=== PATIENT | male | born 2000 | race Caucasian/White ===

== ENCOUNTER 2019-03-11 06:58 | Observation (INO) | payer OTHER ==
--- NOTE | 2019-03-11 07:07 | EDPHY ---
H & P Stated Complaint: sore throat, dysphagia since ~ midnight Time Seen by Provider: 03/11/19 07:06 HPI/ROS: CHIEF COMPLAINT: Throat and esophagus pain HISTORY OF PRESENT ILLNESS: This is a healthy 18-year-old male who had 4 hr of forceful vomiting early this morning (from 11:00 p.m. To 3:00 a.m.). He has not vomited since 3:00 a.m.. He however, he reports throat and esophagus pain. It is a burning constant sensation, worse with swallowing. He is able to swallow. He drank a bit of water this morning and he took an extra strength Tylenol around 3:00 a.m.. No hematemesis (but he states that his vomitus was orangish, possibly due to the chicken wings he had eaten) and no blood in his stool/dark stool. He feels mildly short of breath and has upper posterior shoulder pain with deep breathing. No recent cold or cough. He no longer has nausea. He has not had diarrhea. No fever. He wonders whether he might have had food poisoning after eating chicken wings. No ill contacts. No recent alcohol intake. No trauma. REVIEW OF SYSTEMS: A ten system review of systems was performed and is negative with the exception of the items mentioned in the HPI. Past medical history: Negative Past surgical history: Negative Social history: He is a freshman at the [employer]. His family is in [place]. He does not use tobacco products. He drinks alcohol on rare occasions, once monthly. General Appearance: Alert. Vital signs reviewed. Blood pressure 136 over 80 at triage. Eyes: Pupils equal and round, no conjunctival injection, no discharge. Anicteric. ENT, Mouth: Mucous membranes are moist, no oropharyngeal erythema or edema. Neck: No lymphadenopathy, supple. Trachea midline. Respiratory: Lungs are clear to auscultation; no wheezes, rales, or rhonchi. Cardiovascular: Regular rate and rhythm; no murmur, rub, or gallop. Not tachycardic. Thorax/neck: Mild crepitus left lower neck, above clavicle. Gastrointestinal: Abdomen is soft and nontender, no masses or organomegaly, bowel sounds normal. Skin: Warm and dry, no rashes on exposed skin, normal color. Pulses: Brisk capillary refill. Back: Nontender to palpation over the thoracolumbar spine. No CVAT. Extremities: No lower extremity edema, no calf tenderness or swelling. Neurological: Alert and oriented. Moving all four extremities easily and equally. Psychiatric: Normal affect. - Medical/Surgical History Hx Asthma: No Hx Chronic Respiratory Disease: No Hx Diabetes: No Hx Cardiac Disease: No Hx Renal Disease: No Hx Cirrhosis: No Hx Alcoholism: No Hx HIV/AIDS: No Hx Splenectomy or Spleen Trauma: No Other PMH: denies - Social History Smoking Status: Never smoked Constitutional: Initial Vital Signs Temperature (C) 37.0 C 03/11/19 07:00 Heart Rate 83 03/11/19 07:00 Respiratory Rate 16 03/11/19 07:00 Blood Pressure 136/80 H 03/11/19 07:00 O2 Sat (%) 98 03/11/19 07:00 O2 Delivery Mode Room Air Allergies/Adverse Reactions: No Known Allergies Allergy (Verified 03/11/19 10:43) Home Medications: Medication Instructions Recorded Cephalexin [Keflex] 500 mg PO BID #10 capsule 03/12/19 Polymyxin B Sulfate/Tmp [Polytrim 1 drops OP Q6HRS #1 opht.btl 03/12/19 Opht Drops (*)] Medical Decision Making ED Course/Re-evaluation: Healthy 18-year-old with 4 hr of vomiting in the early childhood specialist and subsequent throat and esophageal pain. He appears well hydrated clinically. Nothing to suggest hemodynamic instability in his vital signs Throat exam is normal. He is breathing easily. Abdomen is soft and nontender. He does not appear systemically ill. Will obtain chest x-ray, suspicion for Ameena-Roth tear. I reviewed his two view chest x-ray. He has small bilateral pneumothoraces, pneumomediastinum a pneumo pericardium--all suggestive of Ameena-Roth tear. Will check CBC. Spoke with Dr.Charles Turner who recommends CT with oral contrast. He saw the patient in the ED. Chest CT shows no pneumothoraces, no esophageal tear/ extravasation. Patient being admitted to Dr. Turner for observation. Differential Diagnosis: I considered a differential diagnosis that includes but is not limited to Ameena-Roth tear, esophagitis, pneumothorax, pharyngitis, peritonsillar abscess, retropharyngeal abscess, epiglottitis. - Data Points Laboratory Results: Laboratory Results 03/11/19 08:20 Medications Given: Discontinued Medications Hydrocodone Bitart/Acetaminophen ([place] 5/325) 1 tab PO EDNOW ONE Stop: 03/11/19 10:08 Last Admin: 03/11/19 10:13 Dose: 1 tab Hydrocodone Bitart/Acetaminophen ([place] 5/325) 1 - 2 tab PO Q4 PRN PRN Reason: Pain Stop: 03/21/19 19:42 Last Admin: 03/12/19 10:49 Dose: 1 tab Hydromorphone HCl (Dilaudid) 0.2 - 0.4 mg IVP Q1 PRN PRN Reason: Pain, Severe Unable to Take PO Stop: 03/21/19 12:34 Last Admin: 03/11/19 16:06 Dose: 0.2 mg Sodium Chloride (Ns) 1,000 mls @ 0 mls/hr IV ONCE ONE PRN Reason: Wide Open Stop: 03/11/19 10:08 Last Admin: 03/11/19 10:12 Dose: 1,000 mls Dextrose/Sodium Chloride (D5w 1/2 Ns) 1,000 mls @ 100 mls/hr IV CONT RILEY Stop: 09/07/19 14:44 Last Admin: 03/11/19 15:01 Dose: 1,000 mls Cefazolin Sodium/Dextrose (Ancef 1 Gm (Premix)) 50 mls @ 200 mls/hr IV Q8 RILEY PRN Reason: Protocol Stop: 03/12/19 14:14 Last Admin: 03/12/19 12:16 Dose: 50 mls Ketorolac Tromethamine (Toradol) 15 mg IVP Q6HRS [facility] Stop: 03/17/19 00:00 Last Admin: 03/12/19 11:15 Dose: 15 mg Pantoprazole Sodium (Protonix) 40 mg IVP EDNOW ONE Stop: 03/11/19 08:12 Last Admin: 03/11/19 08:30 Dose: 40 mg Polymyxin/Trimethoprim Sulfate (Polytrim Opht Drops) 1 drops OP Q6HRS [facility] Stop: 03/18/19 18:01 Last Admin: 03/12/19 11:15 Dose: 1 drop Departure - Departure Disposition: [facility] Acute Clinical Impression: Pneumomediastinum Condition: Good
[2019-03-11] MEDS ORDERED: PANTOPRAZOLE SODIUM 40 MG VIAL IVP ONE (08:11)
[2019-03-11 08:35] LABS: PLATELET COUNT 285 10^3/uL (150-400)
[2019-03-11] MEDS ORDERED: HYDROCODONE/APAP 5/325 TAB PO ONE (10:07)
[2019-03-11] MEDS ORDERED: NS 1,000 ML IV ONE (10:07)
[2019-03-11] MEDS ORDERED: ONDANSETRON 4 MG/2 ML VIAL IVP PRN (12:35)
[2019-03-11] MEDS ORDERED: HYDROmorphONE/DILAUDID 1 MG/ML INJ IVP PRN (12:35)
[2019-03-11] MEDS ORDERED: D5W 1/2 NS 1,000 ML IV SCH (14:45)
--- NOTE | 2019-03-11 19:40 | SOAPPROG ---
SOAP Progress Note Assessment/Plan: Assessment: 18-YEAR-OLD MALE SEEN FOR PNEUMOMEDIASTINUM AFTER A VIOLENT THE EMESIS EPISODES FOR SEVERAL HOURS LAST NIGHT CHEST X-RAY SHOWS PNEUMOMEDIASTINUM AND SUBCU AIR CT SCAN REVEALS NO EVIDENCE OF EXTRAVASATION BUT PERSISTENT MEDIASTINAL AIR AND TRACKING UP INTO THE NECK HEENT NONICTERIC WITHOUT ORAL LESIONS OR ADENOPATHY BUT WITH SOME SUBCU EMPHYSEMA CHEST CLEAR AND SYMMETRIC WITHOUT RUB OR MEDIASTINAL CRUNCH COR REGULAR RHYTHM ABDOMEN SOFT NONTENDER IMPRESSION LESA-TRAUMA/ DOUBT ESOPHAGEAL OR PHARYNGEAL INJURY Plan: FORMAL SWALLOW EVAL AND ESOPHAGRAM/ADMIT FOR OBSERVATION AND PAIN CONTROL /RISKS AND OPTIONS FULLY DISCUSSED 03/11/19 19:37 03/11/19 19:39 Objective: Vital Signs Temp Pulse Resp BP Pulse Ox 36.8 C 67 16 120/59 L 96 03/11/19 18:55 03/11/19 18:55 03/11/19 18:55 03/11/19 18:55 03/11/19 18:55 03/10/19 03/11/19 03/12/19 05:59 05:59 05:59 Intake Total 1400 Balance 1400 ICD10 Worksheet Patient Problems: Problems Problem Status Onset Pneumomediastinum Acute
[2019-03-11] MEDS ORDERED: ACETAMINOPHEN 325 MG TAB PO PRN (19:52)
[2019-03-11] MEDS: HYDROCODONE/APAP 5/325 TAB PO PRN (20:03)
--- NOTE | 2019-03-11 20:06 | GHP ---
[f rep st] PREOP HISTORY AND PHYSICAL DATE OF ADMISSION: 03/11/2019 The patient is a 18-year-old male who was seen in the ER for pneumomediastinum and subcutaneous air. He had forceful vomiting for several hours last night, which he blames on bad food. He has had no b leeding and did not vomit any blood or pass any blood in his stools. He is having some discomfort in his mid chest and neck. The chest x-ray showed some mediastinal and subcutaneous air. CT scan was done with oral contrast which showed no extravasation of the contrast and no pneumothoraces, but sign ificant mediastinal and neck subcutaneous air. This was followed by an esophagram and swallow eval, which was completely normal. He is admitted at this time for observation and pain control. PAST HISTORY: Negative for any major hospitalizations, surgeries, or major medical problems. REVIEW OF SYSTEMS: Negative on a full 10-point review, except as related to the HPI. SOCIAL HISTORY: Reveals he does not smoke. MEDICATIONS: None. ALLERGIES: None. PHYSICAL EXAMINATION: GENERAL: Reveals an alert healthy 18-year-old male in no acute distress. HEA D AND NECK: Reveals him to be nonicteric. PERRLA. EOMs intact. No oral lesions. NECK: Supple. Full range of motion, full pulses. No thyromegaly. He does have some faint subcutaneous crepitans i n his neck. CHEST: Reveals symmetrical breath sounds with no major palpable and tender areas. Has no wheezing and no mediastinal crunch or rub. CARDIAC: Regular rhythm without murmurs. ABDOMEN: S oft and nontender without organomegaly and no inguinal hernias. EXTREMITIES: Reveal full range of m otion. Full pulses. NEUROLOGIC: Physiologic and symmetric. PSYCH: Reveals him to be alert, orien wendy, and cooperative. IMPRESSION: Barotrauma with pneumomediastinum and subcutaneous air but no evidence of esophageal per foration. PLAN: Admit for observation, pain control, and slowly advancing diet. Risks and options fully discu ssed with the patient and his mother, who wished to proceed. /[id number]/MODL
[2019-03-11] MEDS: KETOROLAC 15 MG/1 ML SDV IVP SCH (23:03)
[2019-03-11] MEDS: POLYMYXIN B SULFATE/TMP 10 ML OPHT.BTL OP SCH (23:03)
[2019-03-12 05:29] LABS: PLATELET COUNT 222 10^3/uL (150-400)
[2019-03-12] MEDS: KETOROLAC 15 MG/1 ML SDV IVP SCH ×2 (05:57→11:15)
[2019-03-12] MEDS: POLYMYXIN B SULFATE/TMP 10 ML OPHT.BTL OP SCH ×2 (05:58→11:15)
[2019-03-12] MEDS: HYDROCODONE/APAP 5/325 TAB PO PRN (10:49)
[2019-03-12 10:52] VITALS: BP 108/46
--- NOTE | 2019-03-12 11:52 | ASDISCHSUM ---
Discharge Information Plan Status:Home with No Needs Medically Cleared to Leave:03/12/2019 Discharge Date:03/12/2019 CM D/C Disposition:Home, Routine, Self-Care ADT D/C Disposition:Home, Routine, Self-Care Projected Discharge Date:03/12/2019 Transportation at D/C: Discharge Delay Reason: Follow-Up Date:03/12/2019 Discharge Slot: Final Diagnosis: Placement Information Patient Contact Information Contact Name:ROSE Relationship:Mother Address:[address] Work Phone: City:[facility] [place] Phone: State/Zip Code:[place] [address] Email: Financial Information Financial Class:HMO and PPO Plans Primary Plan Desc:[employer] Primary Plan Number:[id number] Secondary Plan Desc:[employer] Secondary Plan Number:[id number] Assessment Information LACE LACE Length of stay for Answers: 1 day current admission Acuity / Level of Answers: No Care: Did the patient have an inpatient admission? # of Emergency department Answers: 1-2 visits in the last 6 months Score: 2 Date Signed: 03/12/2019 11:50 AM Electronically Signed By:Ping Zimmer RN Intervention Information
== END 2019-03-12 13:29 | disposition home or self-care (01) ==
LOC: F3E 11:31
PROVIDERS: ADMIT Surgery; ATTEND Surgery
DX: J98.2 Interstitial emphysema (principal)
CPT/HCPCS: 71046; 71250; 74220; 96361; 96374; 99285; G0378; J0690; J1170; J1885

== ENCOUNTER → 2019-03-16 | Outpatient (CLI) | payer OTHER | LOC: FIMAGING 10:45 | PROVIDERS: ATTEND Surgery | DX: Z13.83 Encounter for screening for respiratory disorder NEC (principal) ==

== ENCOUNTER → 2019-03-23 | Outpatient (CLI) | payer OTHER | LOC: FIMAGING 11:26 | PROVIDERS: ATTEND Surgery | DX: Z09 Encounter for follow-up examination after completed treatment for conditions other than malignant neoplasm (principal) ==